=== PATIENT | female | born 1965 | race Caucasian/White ===

== ENCOUNTER 2025-08-06 06:24 | Day surgery (SDC) | payer MEDICARE ==
[2025-08-04 11:25] LABS: Absolute Lymphocytes (CBC) 1.6 K/uL (0.7-4.9); Hematocrit 39.0 % (36.0-45.0); Hemoglobin 12.8 g/dL (12.0-15.0); MCH 31.9 pg (27.0-35.0); MCHC 32.9 g/dL (32.0-36.0); MCV 96.9 fL (80-100); MPV 8.6 fL (7.6-11.3); Nucleated RBC Absolute Count 0.0 (0-0); Nucleated Red Blood Cells % 0.0 % (0-0); RBC Red Blood Cell Count 4.03 M/uL (3.86-4.86); White Blood Count 5.40 thou/uL (4.3-10.9)
[2025-08-04 11:37] LABS: Anion Gap 6.8 mEq/L (5.0-15.0); BUN Blood Urea Nitrogen 12.0 mg/dL (7-18); Glucose Level 98.0 mg/dL (74-106); Potassium 3.8 mEq/L (3.5-5.1)
[2025-08-06] MEDS: Ringers Lactate 1,000 ML IV ONE (06:55)
[2025-08-06] MEDS ORDERED: LIDOCAINE 1% MPF 5 ML VIAL ONE (07:10)
[2025-08-06] MEDS ORDERED: SUCCINYLCHOLINE 20 MG/ML (10 ML) IV ONE (07:20)
[2025-08-06 09:29] VITALS: BP 139/84; TEMP 97.9; O2SAT 99
== END 2025-08-06 09:13 | disposition home or self-care (01) ==
LOC: OR 06:24
PROVIDERS: ATTEND Internal Medicine Gastroenterology
PROC: 0DB78ZX Excision of Stomach, Pylorus, Via Natural or Artificial Opening Endoscopic, Diagnostic (ICD-10-PCS; 2025-08-06)
PROC: 0DB68ZX Excision of Stomach, Via Natural or Artificial Opening Endoscopic, Diagnostic (ICD-10-PCS; principal; 2025-08-06 07:30)
DX: R10.13 Epigastric pain (principal); R14.0 Abdominal distension (gaseous); R13.10 Dysphagia, unspecified; K44.9 Diaphragmatic hernia without obstruction or gangrene; K22.2 Esophageal obstruction; K29.50 Unspecified chronic gastritis without bleeding
CPT/HCPCS: 36415; 80048; 85025; 88305; 88312; 93005; J0330; J2003; J2704; J7120